=== PATIENT | female | born 1950 | race Caucasian/White ===

== ENCOUNTER → 2024-05-02 | Outpatient (REF) | payer OTHER ==
[~2024-05-02] MED LIST: IOPAMIDOL 370 MG/ML 100 ML INFUS..BTL INJ ONE; SODIUM CHLORIDE 0.9% 100 ML ONE
[2024-05-02 14:29] LABS: CREATININE, SERUM 0.8 mg/dL (0.57-1.11)
== END ==
LOC: CT 13:28
PROVIDERS: ATTEND Internal Medicine Interventional Cardiology
DX: R07.9 Chest pain, unspecified (principal); I48.91 Unspecified atrial fibrillation; I25.10 Atherosclerotic heart disease of native coronary artery without angina pectoris; I28.8 Other diseases of pulmonary vessels
CPT/HCPCS: 36415; 71275; 82565; 84520; J7050; Q9967